=== PATIENT | female | born 1970 | race Caucasian/White ===

== ENCOUNTER 2024-07-14 08:54 | Emergency (ER) | payer BC, SELFPAY ==
[2024-07-14 08:57] VITALS: BP 165/100
[2024-07-14 09:41] LABS: % Basophils 0.4 % (0-2); % Eosinophils 1.1 % (0-6); % Immature Granulocytes 0.3 % (0-0.5); % Lymphocytes 18.6 % (20.5-51.1); % Monocytes 7.1 % (1.7-9.3); % Neutrophils 72.5 % (42.2-75.2); Absolute Eosinophils 0.1 10^3/uL (0-0.7); Absolute Lymphocytes 1.7 10^3/uL (1.2-3.4); Absolute Monocytes 0.6 10^3/uL (0.1-0.6); Absolute Neutrophils 6.5 10^3/uL (1.4-6.5); Hematocrit 44.3 % (37.0-47.0); Hemoglobin 15.1 g/dL (12.0-16.0); Mean Corp Hgb Conc. 34.1 g/dL (33.0-37.0); Mean Platelet Volume 10.1 fL (7.4-10.4); Nucleated Red Blood Cells % 0 %; Platelet Count 347 10^3/uL (130-400); Red Blood Cell Count 5.21 10^6/uL (4.20-5.40); Red Cell Dist. Width 13.2 % (11.5-14.5)
[2024-07-14] MEDS: ZOFRAN 4 MG IV (09:45)
[2024-07-14] MEDS: NSS 1000 IV (09:45)
[2024-07-14] MEDS: PROTONIX IV 40 MG IV (09:45)
[2024-07-14 09:55] LABS: APTT 28.2 Sec (23.4-35.0); INR 0.96; PT 13.3 Sec (11.4-14.6)
--- NOTE | 2024-07-14 10:06 | ED.GENMED ---
History of Present Illness
General
Chief Complaint: Rectal Bleeding
Source: patient and spouse
Exam Limitations: none
Time Seen by Provider: 07/14/24 09:11
Nursing documentation reviewed up to this point in time: agreed with
History of Present Illness
History of Present Illness:
53-year-old male presenting to the emergency department today with concerns of rectal bleeding starting yesterday. Also has had some back pain nausea lower abdominal pain. Denies taking any blood thinners. Denies similar symptoms in the past no
history of hemorrhoids.
Past History
Past History
ED Past Surgical History: Gynecological (Laparoscopic hysterectomy 2016)
Social History
Personal:
Review of Systems
Review of Systems
Allergies reviewed?: Yes
All Other Systems: ROS reviewed and negative except as documented in HPI and ROS
Phy Exam
Physical Exam
Physical Exam:
GENERAL: Alert , in no apparent distress
EYE: pupils equal and reactive
NECK: Supple, no significant adenopathy.
ENT: o/p clr, mmm.
CARDIAC: Regular rate and rhythm .
LUNGS: Clear breath sounds bilaterally, no acute respiratory distress, no wheezes/rales/rhonchi
ABDOMEN: Pharr stool no hemorrhage guaiac positive. Vague diffuse abdominal pain w
NEUROLOGICAL: Alert and oriented, no focal neuro deficits
SKIN: Warm and dry, skin intact.
MUSCULOSKELETAL: No edema, well perfused.
PSYCH: Normal and appropriate interaction.
Course
Orders/Labs/Results
Orders:
Orders
07/14/24 09:22
IV Insert/Care/Rem.- Treatment PRN
07/14/24 09:30
Basic Metabolic Panel Urgent
Complete Blood Count/With Diff Urgent
PTT Urgent
Prothrombin Time Urgent
07/14/24 09:35
CT Abd/Pel (IV only)-DH only Urgent
Comment:
Reason For Exam: abd pain, rectal bleeding
Ondansetron Injectable [Zofran] 4 mg IV NOW STA
Pantoprazole [Protonix IV] 40 mg IV NOW STA
07/14/24 09:39
0.9% Sodium Chloride 1000 ml [Nss] 1,000 ml IV BOLUS
07/14/24 10:23
Type+Screen Routine
BBK Wristband Number:
07/14/24 12:13
STOOL [C difficile Antigen & Toxins] Urgent
ROXI Source: Feces/Stool
Specimen Description:
Date Specimen was Collected: 07/14/24
Time Specimen was Collected: 12:54
Stool Culture Urgent
ROXI Source: Feces/Stool
Specimen Description:
Date Specimen was Collected: 07/14/24
Time Specimen was Collected: 12:55
07/14/24 12:34
Dicyclomine HCl [Bentyl] 20 mg IM NOW STA
Ketorolac [Toradol] 30 mg IV NOW STA
Abnormal Lab Results
07/14/24
09:30
Lymphocytes % 18.6 L %
(20.5-51.1)
Glucose 105 H mg/dl
(70-99)
07/14/24 09:30
07/14/24 09:30
Vital Signs
Initial and Last Documented VS:
Initial Vital Signs
Temp Pulse Resp BP Pulse Ox
98.2 F 83 16 165/100 97
07/14/24 08:57 07/14/24 08:57 07/14/24 08:57 07/14/24 08:57 07/14/24 08:57
Last Documented Vital Signs
Temp Pulse Resp BP Pulse Ox
98.2 F 66 16 151/75 98
07/14/24 08:57 07/14/24 11:18 07/14/24 08:57 07/14/24 12:27 07/14/24 12:27
MDM/Problems Addressed
MDM/Problems Addressed:
53-year-old female presenting to the emergency department today with concerns of rectal bleeding starting yesterday. Has had some low back pain and lower on arrival blood pressure elevated otherwise vital signs are normal. Labs obtained with
normal hemoglobin. CT scan showing colitis likely explaining patient's symptoms. Patient generally well-appearing here no distress stool culture was sent but otherwise stable for outpatient follow-up return w precautions given.
*Critical Care Note
Total Time (30-74mins, 75-104mins- exclusive of procedures): Not Applicable
ED Attending Note
-
Portions of this chart may have been created with voice recognition software.� Occasional wrong word or��sound alike� substitutions may have occurred due to the inherent limitations of voice recognition software.
Discharge Plan
Departure
Patient Disposition: Home (Routine Discharge)
Date of Disposition: 07/14/24
Time of Disposition: 13:06
Patient with high blood pressure during this ER visit?: No
Condition: Good
Covid-19: Not Applicable
Discharge Problem:
Colitis, Rectal bleed
Instructions: Bloody Stools, Adult (DC)
Prescriptions:
New
dicyclomine 20 mg tablet
20 mg PO QID PRN (Reason: abdominal pain) Qty: 10 0RF
Referrals:
Yefri Junior MD [Family Provider] -
Activity Restrictions/Additional Instructions:
You came to the emergency department today with concerns of bleeding and abdominal pain. Here you had a reassuring assessment. Please have close with the primary care doctor. Stool cultures are currently pending and if they are positive you will
be contacted in the next few days. For symptoms you can take Bentyl as prescribed. Return to the emergency department for any worsening, new or concerning symptoms.
Interventions
Interventions:
*Risk Screen - Suicide Last Done: 07/14/24 08:57
*General Assessment Last Done: 07/14/24 09:24
*Neglect/Abuse Screening Last Done: 07/14/24 08:57
ED- Fall Risk Assessment Last Done: 07/14/24 09:24
*ED COVID-19 Vaccine History Last Done: 07/14/24 08:57
PH-Eofdpb-Yejqtbjmfd Assessment Last Done: 07/14/24 09:33
ED- Cardiac Assessment Last Done: 07/14/24 09:24
ED- Pulmonary Assessment Last Done: 07/14/24 09:24
Discharge Date and Time
Print Language: NAMIBIAN
[2024-07-14 10:41] LABS: Blood Urea Nitrogen 16 mg/dl (7-17); Calcium 9.7 mg/dl (8.4-10.2); Carbon Dioxide 27 mmol/L (22-30); Chloride 102 mmol/L (98-107); Glucose 105 mg/dl (70-99); Sodium 141 mmol/L (135-145); eGFR > 60.00
[2024-07-14 11:18] VITALS: BP 152/85
[2024-07-14 12:27] VITALS: BP 151/75
[2024-07-14] MEDS: TORADOL 30 MG IV (12:46)
[2024-07-14] MEDS: BENTYL 20 MG IM (12:46)
== END 2024-07-14 13:24 | disposition home or self-care (01) ==
LOC: EMR 08:54
PROVIDERS: Physician Assistant; EMERGENCY PHYSICIAN Emergency Medicine; FAMILY PHYSICIAN Family Medicine
DX: K52.9 Noninfective gastroenteritis and colitis, unspecified (principal); Z90.710 Acquired absence of both cervix and uterus
CPT/HCPCS: 96374; 96375; 96372; 96361; 99284; 74177; 80048; 85025; 85610; 85730; 86850; 86900; 86901; 87045; 87046; 87324; 87427; 87449; Q9967

== ENCOUNTER 2024-09-29 06:20 | Day surgery (SDC) | payer BC, SELFPAY | END 2024-09-29 13:55 | disposition home or self-care (01) | LOC: GI 06:20 | PROVIDERS: ATTENDING PHYSICIAN Surgery | DX: R93.3 Abnormal findings on diagnostic imaging of other parts of digestive tract (principal); D12.5 Benign neoplasm of sigmoid colon; K64.9 Unspecified hemorrhoids; Z80.0 Family history of malignant neoplasm of digestive organs | CPT/HCPCS: 45385; 88305 ==

== ENCOUNTER → 2025-03-09 08:09 | Outpatient (REF) | payer BC, SELFPAY | LOC: RAD 08:09 | PROVIDERS: ATTENDING PHYSICIAN Physician Assistant | DX: E04.9 Nontoxic goiter, unspecified (principal) | CPT/HCPCS: 76536 ==

== ENCOUNTER → 2025-03-17 06:49 | Outpatient (REF) | payer BC, SELFPAY | LOC: WDC 06:49 | PROVIDERS: ATTENDING PHYSICIAN Physician Assistant | DX: Z12.31 Encounter for screening mammogram for malignant neoplasm of breast (principal) | CPT/HCPCS: 77063; 77067 ==